=== PATIENT | male | born 1965 | race Two or more races ===

== ENCOUNTER 2020-04-18 04:42 | Emergency (ER) | payer OTHER ==
[~2020-04-18] VITALS: Ht 188 cm; Wt 97.5 kg
[2020-04-18] MEDS ORDERED: TESSALON PERLE100 M1 PO (13:03)
[2020-04-18] MEDS ORDERED: SYMBICORT 80/10.2 GM IH (13:03)
[2020-04-18] MEDS ORDERED: ZITHROMAX500 MG PO (13:03)
[2020-04-18] MEDS ORDERED: TUSSIN DM SYRU118 ML PO (13:03)
== END 2020-04-18 13:11 | disposition home or self-care (01) ==
LOC: ER 04:42
DX: J45.998 Other asthma (principal); B96.0 Mycoplasma pneumoniae [M. pneumoniae] as the cause of diseases classified elsewhere; Z03.818 Encounter for observation for suspected exposure to other biological agents ruled out

== ENCOUNTER 2021-05-04 17:59 | Emergency (ER) | payer OTHER ==
[~2021-05-04] VITALS: Ht 182.9 cm; Wt 77.1 kg
[~2021-05-04 17:59] MED LIST: SYMBICORT 80/10.2 GM IH; TESSALON PERLE100 M1 PO; TUSSIN DM SYRU118 ML PO; ZITHROMAX500 MG PO
[2021-05-05] MEDS ORDERED: SYMBICORT 16010.2 GM IH (01:55)
[2021-05-05] MEDS ORDERED: XOPENEX0.63 MG/3 IH (01:55)
[2021-05-05] MEDS ORDERED: FLONASE ALLERG9.9 ML NASAL (02:05)
[2021-05-05] MEDS ORDERED: NAPROXEN500 MG PO (02:05)
== END 2021-05-05 02:09 | disposition home or self-care (01) ==
LOC: ER 17:59
DX: J45.901 Unspecified asthma with (acute) exacerbation (principal); Z20.822 Contact with and (suspected) exposure to COVID-19